=== PATIENT | female | born 1990 | race Caucasian/White ===

== ENCOUNTER → 2018-04-11 | Outpatient (CLI) | payer MEDICAID ==
--- NOTE | 2018-04-11 13:26 | Diagnostic Imaging Report ---
INDICATION: anatomical assessment during normal . TECHNIQUE: Multiple real-time grayscale images were obtained over the gravid uterus. COMPARISON: None. FINDINGS: Single intrauterine currently in a cephalic presentation. Normal amount of amniotic fluid appears to be present. The placenta is anterior and low lying. The placental margins approximately 1-2 cm from the cervix. Cervical length is somewhat difficult to quantify but measures approximately 3.2 cm. Visualized anatomical structures including the kidneys, bladder, stomach, three-vessel cord and its insertion site appearing unremarkable. Intracranial structures, cardiac structures and spine cannot be well visualized owing to positioning. Biometrical measurements are as follows: Biparietal 4.61 cm, age 20 weeks 0 days. Head circumference 18.34 cm, age 20 weeks 5 days. Abdominal circumference 15.13 cm, age 20 weeks 3 days. Femur length 3.38 cm, age 20 weeks 5 days. Sonographic estimate age: 20 weeks 4 days. Sonographic estimated date of delivery: 08/25/2018. Estimated Weight: 356 gm (+/- 52 gm). LMP percentile: 56%. heart rate: 143 beats per minute. number: 1 of 1. IMPRESSION: 1. Single viable intrauterine currently in a cephalic presentation. Sonographic estimated age 20 weeks 4 days for an estimated date of delivery 08/25/2018. 2. No abnormalities demonstrated at this time. However, the intracranial structures, cardiac structures and spine is not well visualized and evaluated owing largely to the positioning. 3. The anteriorly positioned placenta is fairly low-lying, near the level of the cervix. 4. Consideration for followup imaging would be recommended for reassessment of these indeterminate and limited findings. Dictated by: Dictated on workstation # [id number]
== END ==
LOC: RAD 12:01
PROVIDERS: ATTEND Obstetrics & Gynecology
DX: Z36.89 Encounter for other specified antenatal screening (principal); Z3A.20 20 weeks gestation of pregnancy
CPT/HCPCS: 76805

== ENCOUNTER → 2018-05-11 | Outpatient (CLI) | payer MEDICAID ==
--- NOTE | 2018-05-11 12:12 | Diagnostic Imaging Report ---
INDICATION: Followup placenta and cervical length. TECHNIQUE: Multiple real-time grayscale images were obtained over the gravid uterus. COMPARISON: 04/11/2018. FINDINGS: There is a single live fetus in a cephalic presentation. heart rate was recorded at 135 beats per minute. The placenta is anterior. The placenta does not appear to be low lying at this time. Cervix is approximately 2.6 cm in length. Four-chamber heart and spine was better seen today and appear unremarkable. brain is not well seen today due to head position. IMPRESSION: 1. Anterior placenta is no longer low lying and is now located approximately 3.6 cm from the internal cervical os. 2. survey is unremarkable, although head is limited due to position. 3. Cervical length is 2.6 cm. Dictated by: Dictated on workstation # [id number]
== END ==
LOC: RAD 09:59
PROVIDERS: ATTEND Obstetrics & Gynecology
DX: Z36.89 Encounter for other specified antenatal screening (principal); Z3A.00 Weeks of gestation of pregnancy not specified
CPT/HCPCS: 76816

== ENCOUNTER → 2018-07-20 | Outpatient (CLI) | payer MEDICAID ==
--- NOTE | 2018-07-20 20:11 | Diagnostic Imaging Report ---
INDICATION: Right breast lump. FINDINGS: Sonographic interrogation of all four quadrants of the right breast as well as the retroareolar region and right axilla was performed. Area of palpable abnormality corresponds to the retroareolar location of the right breast. There is a circumscribed macrolobulated hypoechoic solid mass at this location measuring 1.9 x 1.3 x 1.9 cm. There is some internal vascularity. This has the appearance of a fibroadenoma. No other masses are seen. IMPRESSION: Findings most consistent with a fibroadenoma in the retroareolar right breast corresponding to the palpable abnormality. Even so, followup right breast ultrasound in six months is recommended to confirm stability. ACR BI-RADS Category 3: Probably benign findings. Dictated by: Dictated on workstation # [id number]
== END ==
LOC: RAD 10:45
PROVIDERS: ATTEND Obstetrics & Gynecology
DX: N63.12 Unspecified lump in the right breast, upper inner quadrant (principal)
CPT/HCPCS: 76641

== ENCOUNTER 2018-07-31 07:06 | Inpatient (IN) | payer MEDICAID ==
[2018-07-31] VITALS (33 sets, daily range): BP systolic 101–190; BP diastolic 55–152
[~2018-07-31] VITALS: Ht 167.6 cm; Wt 98.9 kg
--- NOTE | 2018-07-31 07:12 | NUR ---
CHRIS MONTAGUE presented to unit via amb from home, accompanied by spouse , with c/o contractions and leaking fluid. CHRIS MONTAGUE weighed, gowned, voided, and to bed. 0736 [facility] and TOCO applied, VS taken. CHRIS MONTAGUE oriented to bed controls, call light, TV, heat, and A/C controls.
--- NOTE | 2018-07-31 07:46 | NUR ---
AMNIO SWAB PERFORMED. FOR ROM.
--- NOTE | 2018-07-31 07:54 | NUR ---
SVE BY MAYANK HAQUE. 4.5 CM/90%/-2.
[2018-07-31] MEDS ORDERED: D5 LR IV SOLUTION 1,000 ML IV SCH (08:11)
[2018-07-31] MEDS ORDERED: MINERAL OIL CONCENTRATE 99.9% 15 ML UDC TOP PRN (08:15)
--- NOTE | 2018-07-31 08:15 | NUR ---
DR. MIDDLETON NOTIFIED OF PT'S ARRIVAL AND ROM AND CERVICAL EXAM.
[2018-07-31] MEDS ORDERED: OXYTOCIN/NORMAL SALINE 500 ML IV SCH (08:18)
--- NOTE | 2018-07-31 08:24 | NUR ---
LAB HERE TO DRAW BLOOD.
[2018-07-31] MEDS ORDERED: LIDOCAINE/EPI 1%-1:200,000 (XYLOCAINE) 10 ML VIAL INJ ONE (08:30)
[2018-07-31] MEDS ORDERED: DOXY1TAB6 PO (08:38)
[2018-07-31 08:39] LABS: BASOPHILS % (AUTO) 0 % (0-10); EOSINOPHILS # (AUTO) 0.1 10^3/uL (0.0-0.3); EOSINOPHILS % (AUTO) 1 % (0-10); HEMATOCRIT 34 % (35-52); HEMOGLOBIN 11.4 G/DL (11.5-16.0); LYMPHOCYTES # (AUTO) 1.9 X 10^3 (1.0-4.0); LYMPHOCYTES % (AUTO) 14 % (12-44); MEAN CORPUSCULAR HEMOGLOBIN 28 PG (25-34); MEAN CORPUSCULAR HGB CONC 34 G/DL (32-36); MEAN CORPUSCULAR VOLUME 83 FL (80-99); MEAN PLATELET VOLUME 10.6 FL (7.4-10.4); MONOCYTES # (AUTO) 0.6 X 10^3 (0.0-1.0); MONOCYTES % (AUTO) 4 % (0-12); NEUTROPHILS # (AUTO) 10.7 X 10^3 (1.8-7.8); NEUTROPHILS % (AUTO) 81 % (42-75); PLATELET COUNT 219 10^3/uL (130-400); RED CELL DISTRIBUTION WIDTH 12.8 % (10.0-14.5); WHITE BLOOD COUNT 13.3 10^3/uL (4.3-11.0)
--- NOTE | 2018-07-31 08:39 | NUR ---
SALINE LOCK STARTED IN RIGHT HAND WITH A #18G INTRACATH BY ROLAND HAQUE.
[2018-07-31 08:58] LABS: BILIRUBIN,URINE NEGATIVE (NEGATIVE); CLARITY,URINE CLEAR; COLOR,URINE YELLOW; GLUCOSE, URINE (UA) NEGATIVE (NEGATIVE); KETONES,URINE NEGATIVE (NEGATIVE); LEUKOCYTE ESTERASE ,URINE NEGATIVE (NEGATIVE); NITRITE,URINE NEGATIVE (NEGATIVE); PH,URINE 6 (5-9); PROTEIN,URINE NEGATIVE (NEGATIVE); UROBILINOGEN,URINE NORMAL (NORMAL)
--- NOTE | 2018-07-31 09:04 | History & Physical-OB ---
OB - Chief Complaint & HPI Date/Time Date of Admission: Date of Admission: 07/31/18 Date seen by a Provider: Jul 31, 2018 Time Seen by a Provider: 09:00 Chief Complaint/History OB-Reason for Admission/Chief: Labor Hx : 1 Hx Para: 0 Expected Date of Delivery: Aug 27, 2018 Gestational Age in Weeks: 36 Gestational Age in Days: 1 Admission Nurse Assessment Rev: Yes History of Labs A+/- Rub I VDRL NR HBSAg- Hep C- HIV - GBS - Other Admitted for complaint of SROM. She is acutely ruptured on exam and cervix 4 cm dilated with rare contractions. complicated by right breast fibroadenoma. Allergies and Home Medications Allergies Coded Allergies: No Known Drug Allergies (Unverified , 07/31/18) Home Medications Doxylamine Succinate/Vit B6 1 Each Tab.ir, 1 TAB PO DAILY, (Reported) Patient Home Medication List Home Medication List Reviewed: Yes OB - History Hx of Present Ultrasounds: Normal mid trimester US Obstetrical Complications: None Medical Complications: Other (breast fibroadenoma) Obstetrical History Hx : 1 Hx Para: 0 Patient Past Medical History NC Social History/Family History HIV/AIDS: No Recent Infectious Disease Expo: No Sexually Transmitted Disease: No Alcohol Use: Denies Use Recreational Drug Use: No Smoking Cessation: Never smoker Immunizations Hepatitis A: No Hepatitis B: No Tetanus Booster (TDap): Less than 5yrs (06/14/17) Date of Influenza Vaccine: Jan 01, 2018 Rubella: immune RPR/VDRL: Negative GBS Status: Negative HBsAG: Negative OB - Admission Exam Physical Exam Vitals: see Rn notes Heart: Rhythm Normal Lungs: Clear Abdomen: Gravid Extremities: Normal Reflexes: Normal Cervical Dilatation: 4cm Effacement: 75% Station: -2 Membranes: Ruptured Amniotic Fluid: Clear Accelerations: Accelerations Present Decelerations: No Decelerations Short Term Variability: Present Concrete Hopper Operator Variability: Average (6-25) Contractions on Admission: 6-10 Minutes Apart Labs Laboratory Tests Test 07/31/18 08:00 07/31/18 08:30 Range/Units White Blood Count 13.3 H 4.3-11.0 10^3/uL Red Blood Count 4.11 L 4.35-5.85 10^6/uL Hemoglobin 11.4 L 11.5-16.0 G/DL Hematocrit 34 L 35-52 % Mean Corpuscular Volume 83 80-99 FL Mean Corpuscular Hemoglobin 28 25-34 PG Mean Corpuscular Hemoglobin Concent 34 32-36 G/DL Red Cell Distribution Width 12.8 10.0-14.5 % Platelet Count 219 130-400 10^3/uL Mean Platelet Volume 10.6 H 7.4-10.4 FL Neutrophils (%) (Auto) 81 H 42-75 % Lymphocytes (%) (Auto) 14 12-44 % Monocytes (%) (Auto) 4 0-12 % Eosinophils (%) (Auto) 1 0-10 % Basophils (%) (Auto) 0 0-10 % Neutrophils # (Auto) 10.7 H 1.8-7.8 X 10^3 Lymphocytes # (Auto) 1.9 1.0-4.0 X 10^3 Monocytes # (Auto) 0.6 0.0-1.0 X 10^3 Eosinophils # (Auto) 0.1 0.0-0.3 10^3/uL Basophils # (Auto) 0.0 0.0-0.1 10^3/uL OB - Assessment/Plan/Diagnosis Assessment Assessment: IUP - , labor, rupture of membranes Admission Dx 1. premature rupture of membranes 2. GBS - 36 1/7 week gestation 4. fibroadenoma of the right breast Admission Status: Inpatient Order (span 2 midnights) (labor) Reason for Inpatient Admission: labor Plan Plan: Expectant Management Other Plan Admit for premature rupture of membranes. Anticipate Epidural and augmentation as needed. GBS - Peds - no local ([facility]) CHASE MIDDLETON DO Jul 31, 2018 09:04
[2018-07-31 09:05] LABS: BACTERIA,URINE FEW /HPF; RBC,URINE 0-2 /HPF; WBC,URINE 0-2 /HPF
--- NOTE | 2018-07-31 09:20 | NUR ---
PT TRANSFERRED VIA W/C TO LABOR ROOM 316. ORIENTED TO SURROUNDINGS. UP TO THE BATHROOM. VOID.
--- NOTE | 2018-07-31 09:30 | NUR ---
Report received from Nicho Talavera RN
--- NOTE | 2018-07-31 09:40 | NUR ---
1000 CC LR STARTED IV TRA W/O RATE FOR EPIDURAL PROCEDURE.
[2018-07-31] MEDS ORDERED: SUFENTA 0.6MCG/ML BUPIVA 0.125 100 ML ONE (10:09)
[2018-07-31] MEDS: BETAMETHASONE ACE/NA PHOS 6 MG/ML (CELESTONE SOLUSPAN) IM SCH ×2 (10:20→21:00)
[2018-07-31] MEDS ORDERED: fentaNYL INJECTION 100 MCG/2 ML AMP ONE (10:22)
[2018-07-31] MEDS ORDERED: BUPIVACAINE 0.25% 30 ML (SENSORCAINE) VIAL ONE (10:22)
--- OUTSIDE RECORDS SUMMARY | 2018-07-31 10:24 | XMS REPORT ---
Author Author CAN REAVES Organization [facility] Address [address] [place] [address] Care Team Providers Care Mathematician Name Role Phone CAN REAVES Unavailable PROBLEMS Type Condition ICD9-CM Code FGI76-HX Code Onset Dates Condition Status SNOMED Code Problem Acute seasonal allergic rhinitis, unspecified trigger J30.2 Active 757648776 ALLERGIES No Information ENCOUNTERS Encounter Location Date Diagnosis [facility] [address] [place] [phone] Jan, Acute seasonal allergic rhinitis, unspecified trigger J30.2 and Fever, unspecified fever cause R50.9 [facility] [address] [place] [phone] Nov, Encounter for immunization Z23 [facility] [address] [id number] Oct, Encounter for dental examination Z01.20 IMMUNIZATIONS Vaccine Route Administration Date Status FLUARIX QUAD (3 AND UP) 2016 IM Intramuscular Dec 19, 2016 Administered SOCIAL HISTORY Never Assessed REASON FOR VISIT Flu shot-AHarrymanRN PLAN OF CARE VITAL SIGNS MEDICATIONS No Known Medications RESULTS No Results PROCEDURES Procedure Date Ordered Result Body Site FLUARIX QUAD (3 AND UP) 2017 Dec 19, 2016 SINGLE IMMUNIZATION ADMIN Dec 19, 2016 INSTRUCTIONS MEDICATIONS ADMINISTERED No Known Medications MEDICAL (GENERAL) HISTORY Type Description Date Medical History History of pneumonia 2011 Surgical History [place] teeth 2006
--- OUTSIDE RECORDS SUMMARY | 2018-07-31 10:24 | XMS REPORT ---
Author Author NUPUR MORALES Organization [facility] Address [address] [place] [address] Care Team Providers Care Sailor Name Role Phone NUPUR MORALES Unavailable PROBLEMS Type Condition ICD9-CM Code [id number] Code Onset Dates Condition Status SNOMED Code Problem Acute seasonal allergic rhinitis, unspecified trigger J30.2 Active [id number] ALLERGIES No Known Allergies ENCOUNTERS Encounter Location Date Diagnosis [facility] [address] [place] [phone] Jan, Acute seasonal allergic rhinitis, unspecified trigger J30.2 and Fever, unspecified fever cause R50.9 [facility] [address] [place] [phone] Nov, Encounter for immunization Z23 [facility] [id number] [place] [id number] Oct, Encounter for dental examination Z01.20 IMMUNIZATIONS No Known Immunizations SOCIAL HISTORY Never Assessed REASON FOR VISIT vishal parson PLAN OF CARE Activity Details Follow Up First Available Reason:Restorative VITAL SIGNS Heart Rate 67 bpm 2016-11-17 Blood pressure systolic 112 mmHg 2016-11-17 Blood pressure diastolic 76 mmHg 2016-11-17 MEDICATIONS No Known Medications RESULTS No Results PROCEDURES Procedure Date Ordered Result Body Site COMP ORAL EVALUATION - NEW/EST PT Nov 17, 2016 INTRAORL-PERIAPICAL 1 FILM [id number] Nov 17, 2016 TOPICAL FLUORIDE VARNISH Nov 17, 2016 INTRAORL-PERIAPICAL EA ADD FILM Nov 17, 2016 INTRAORL-PERIAPICAL EA ADD FILM Nov 17, 2016 PROPHYLAXIS - ADULT Nov 17, 2016 BITEWINGS - FOUR FILMS Nov 17, 2016 INSTRUCTIONS MEDICATIONS ADMINISTERED No Known Medications MEDICAL (GENERAL) HISTORY Type Description Date Medical History History of pneumonia 2011 Surgical History [place] teeth 2006
--- OUTSIDE RECORDS SUMMARY | 2018-07-31 10:24 | XMS REPORT ---
Author Author ZULLY GRIMES Organization [facility] Address [address] [place] [address] Care Team Providers Care Mailroom Courier Name Role Phone GRIMES ZULLY Unavailable PROBLEMS Type Condition ICD9-CM Code UQV05-LY Code Onset Dates Condition Status SNOMED Code Problem Acute seasonal allergic rhinitis, unspecified trigger J30.2 Active [id number] ALLERGIES No Known Allergies ENCOUNTERS Encounter Location Date Diagnosis [facility] [id number] [address] Jan, Acute seasonal allergic rhinitis, unspecified trigger J30.2 and Fever, unspecified fever cause R50.9 [facility] [address] [address] Nov, Encounter for immunization Z23 [facility] [address] [place] [phone] Oct, Encounter for dental examination Z01.20 IMMUNIZATIONS Vaccine Route Administration Date Status DEXAMETHASONE 4MG/ML (PER 1 MG) IM Intramuscular Jan 31, 2017 Administered DEPO MEDROL 80 MG/ML IM Intramuscular Jan 31, 2017 Administered SOCIAL HISTORY Never Assessed REASON FOR VISIT congestion, facial pain started Sun JStrasserRN PLAN OF CARE Activity Details Follow Up prn Reason: VITAL SIGNS Weight 154.2 lbs 2017-01-31 Temperature 98.4 degrees Fahrenheit 2017-01-31 Heart Rate 86 bpm 2017-01-31 Respiratory Rate 20 2017-01-31 Blood pressure systolic 106 mmHg 2017-01-31 Blood pressure diastolic 66 mmHg 2017-01-31 MEDICATIONS No Known Medications RESULTS Name Result Date Reference Range INFLUENZA A & B (IN HOUSE) 2017-01-31 INFLUENZA A negative INFLUENZA B negative Control + Lot # [id number] Exp date 2017-10-20 PROCEDURES Procedure Date Ordered Result Body Site DEPO MEDROL 80 MG/ML Jan 31, 2017 DEXAMETHASONE 4MG/ML (PER 1 MG) Jan 31, 2017 THER/PROPH/DIAG INJ, SC/IM Jan 31, 2017 INFLUENZA ASSAY W/OPTIC Jan 31, 2017 INSTRUCTIONS MEDICATIONS ADMINISTERED No Known Medications MEDICAL (GENERAL) HISTORY Type Description Date Medical History History of pneumonia 2011 Surgical History [place] teeth 2006
[2018-07-31] MEDS ORDERED: LACTATED RINGERS 1,000 ML IV ONE (11:06)
[2018-07-31] MEDS ORDERED: CATHETER FLUSH 10 ML SYR IV PRN (11:15)
[2018-07-31] MEDS ORDERED: NALOXONE 0.4 MG/ML 1 ML (NARCAN) VIAL IV PRN (11:15)
[2018-07-31] MEDS ORDERED: ONDANSETRON 4 MG/2 ML (SDV) Z0FRAN IV PRN (11:15)
[2018-07-31] MEDS ORDERED: EPIDURAL (SUFENTA 0.6MCG/ML BUPIVA 0.125%) 100 ML BAG EPI SCH ×2 (11:15→12:30)
[2018-07-31] MEDS ORDERED: diphenhydrAMINE 50 MG/ML INJ (BENADRYL) IV PRN (11:15)
[2018-07-31] MEDS ORDERED: CATHETER FLUSH 10 ML SYR IV SCH (14:00)
--- NOTE | 2018-07-31 14:50 | NUR ---
spontaneous vaginal delivery of placenta with cord attached. fundal massage per dr ware, noted firm with minimal bleeding. 1451 Pitocin infusing per pump at 999ml/hr as ordered by dr ware. plan of care reviewed with pt per dr ware. 1455 ffu/1 with lt-mod rubra noted, no clots expressed, vital signs stable 1510 ffu/2 with lt rubra noted, vital signs stable. skin to skin with mother 1525 ffu/2 with lt rubra noted, no clots expressed. pt denies needs 1540 vital signs stable. ffu/1 with mod rubra noted, no clots expressed. 1555 vital signs stable. ffu/1 with mod rubra noted. plan of care reviewed with pt. pt able to move both lower extremeties for transport to room.
[2018-07-31] MEDS: OXYTOCIN/NORMAL SALINE 500 ML IV SCH ×2 (14:51→16:20)
[2018-07-31] MEDS ORDERED: MEASLES,MUMPS,RUBELLA 1 EA INJ SQ ONE (15:00)
[2018-07-31] MEDS ORDERED: TETANUS,DIPTH,PERTUSS P/F (BOOSTRIX) 0.5 ML VIAL IM ONE (15:00)
[2018-07-31] MEDS ORDERED: WITCH HAZEL(TUCKS) 40 EA JAR TOP PRN (15:00)
[2018-07-31] MEDS ORDERED: BENZOCAINE/MENTHOL (DERMOPLAST) 56 ML CAN TP PRN (15:00)
--- NOTE | 2018-07-31 15:00 | NUR ---
epidural catheter dc'd with tip intact
--- NOTE | 2018-07-31 15:06 | OB Labor & Delivery Record ---
Vag Delivery Note Vag Delivery Note Date of Delivery: 07/31/18 Preoperative Diagnosis: Moose Harding is a 27 /Para 1 / 0,Gestational Age 36 week gestation, premature rupture of membranes Postoperative Diagnosis: Same Surgeon: CHASE MIDDLETON Anesthesia: epidural Delivery Type: vaginal Findings: Viable male , apgars 8/9 , weight ^#5oz Lacerations: none Intact placenta with 3 vessel cord. Nuchal cord x 1 delivered through, no body cord or shoulder dystocia Estimated Blood Loss: 150 ml Complications: None Condition: Stable Description of Procedure: The patient is a 27 year old female who presented at 36 1/7 weeks with premature, rupture of membranes. She was admitted and informed consent was obtained. Her labor course was remarkable for pitocin augmentation. She progressed to complete dilatation and began to push. She was then set up for delivery. The infant's head was delivered atraumatically in the Ella position. The shoulders and remainder of the infant's body were then delivered without difficulty. Upon delivery, the head was held below the level of the perineum and the mouth and nares were bulb suctioned. The cord was doubly clamped and cut and the infant was handed off to the pediatric staff. An intact placenta with 3-vessel cord delivered via Juanito and there was found to be minimal bleeding.~ Vigorous fundal massage was performed and the fundus was found to be firm. IV oxytocin was given. Examination of the vagina and perineum revealed no laceration. Following the delivery, sponge, instrument and needle counts were correct. Mom and baby were both in stable condition in the labor suite. Vitals - Labs Vital Signs - I&O Vital Signs Date Time Temp Pulse Resp B/P (MAP) Pulse Ox O2 Delivery O2 Flow Rate FiO2 07/31/18 12:45 100 18 120/67 (84) 98 Room Air 07/31/18 12:30 90 18 113/63 (80) 98 Room Air 07/31/18 12:15 96 18 107/61 (76) 98 Room Air 07/31/18 12:00 89 18 107/57 (74) 100 Room Air 07/31/18 11:45 87 18 119/62 (81) 100 Room Air 07/31/18 11:30 99 18 115/60 (78) 100 Room Air 07/31/18 11:25 85 117/62 (80) 100 Room Air 07/31/18 11:23 99 190/152 (165) 99 Room Air 07/31/18 11:20 104 142/108 (119) 99 Room Air 07/31/18 11:15 77 18 111/60 (77) 97 Room Air 07/31/18 11:10 92 18 101/57 (72) 98 Room Air 07/31/18 11:08 95 18 112/60 (77) 97 Room Air 07/31/18 11:05 91 18 114/64 (81) 97 Room Air 07/31/18 11:00 95 18 109/61 (77) 98 Room Air 07/31/18 10:58 90 18 116/65 (82) 99 Room Air 07/31/18 10:55 88 18 115/55 (75) 99 Room Air 07/31/18 10:53 85 18 125/58 (80) Room Air 07/31/18 10:50 96.4 100 18 117/59 (78) 99 Room Air 07/31/18 10:45 96 18 130/73 (92) 98 Room Air 07/31/18 10:40 107 18 99 Room Air 07/31/18 10:35 90 18 135/70 (91) 98 Room Air 07/31/18 10:30 07/31/18 10:20 85 18 120/65 (83) Room Air 07/31/18 10:00 102 18 144/80 (101) Room Air 07/31/18 09:50 77 18 124/67 (86) Room Air 07/31/18 09:35 84 18 133/69 (90) Room Air Labs Laboratory Tests 07/31/18 08:00: Urine Color YELLOW, Urine Clarity CLEAR, Urine pH 6, Urine Specific [place] 1.015L, Urine Protein NEGATIVE, Urine Glucose (UA) NEGATIVE, Urine Ketones NEGATIVE, Urine Nitrite NEGATIVE, Urine Bilirubin NEGATIVE, Urine Urobilinogen NORMAL, Urine Leukocyte Esterase NEGATIVE, Urine RBC (Auto) 2+H, Urine RBC 0-2, Urine WBC 0-2, Urine Squamous Epithelial Cells 2-5, Urine Crystals NONE, Urine Bacteria FEWH, Urine Casts NONE, Urine Mucus SMALLH, Urine Culture Indicated CUL TURE PENDING 07/31/18 08:30: White Blood Count 13.3H, Red Blood Count 4.11L, Hemoglobin 11.4L, Hematocrit 34L , Mean Corpuscular Volume 83, Mean Corpuscular Hemoglobin 28, Mean Corpuscular Hemoglobin Concent 34, Red Cell Distribution Width 12.8, Platelet Count 219, Mean Platelet Volume 10.6H, Neutrophils (%) (Auto) 81H, Lymphocytes (%) (Auto) 14, Monocytes (%) (Auto) 4, Eosinophils (%) (Auto) 1, Basophils (%) (Auto) 0, Neutrophils # (Auto) 10.7H, Lymphocytes # (Auto) 1.9, Monocytes # (Auto) 0.6, Eosinophils # (Auto) 0.1, Basophils # (Auto) 0.0 CHASE MIDDLETON DO Jul 31, 2018 15:05
--- NOTE | 2018-07-31 16:00 | NUR ---
Pericare, pad changed, underwear on, gown changed. plan of care reviewed with pt and family. Pt assisted to wheelchair and transferred to room 312. Oriented to room, call light and bed. in room with mother.
--- NOTE | 2018-07-31 17:30 | NUR ---
Assisted up to void. +void, pericare and pad changed. back to bed. pt ambulates well. fresh ice water to bedside.
[2018-07-31] MEDS: ACETAMINOPHEN 500 MG TAB (TYLENOL) PO SCH (21:09)
[2018-07-31] MEDS: DOCUSATE SODIUM 100 MG (COLACE) CAP PO SCH (21:10)
[2018-07-31] MEDS: CATHETER FLUSH 10 ML SYR IV SCH (21:10)
[2018-08-01] VITALS: BP 106/57
[2018-08-01] MEDS: IBUPROFEN 600 MG (MOTRIN) TAB PO SCH ×5 (00:05→19:59)
[2018-08-01 04:00] VITALS: BP 103/58
[2018-08-01] MEDS: ACETAMINOPHEN 500 MG TAB (TYLENOL) PO SCH ×3 (05:15→19:59)
[2018-08-01 06:51] LABS: BASOPHILS % (AUTO) 0 % (0-10); EOSINOPHILS % (AUTO) 0 % (0-10); HEMATOCRIT 31 % (35-52); HEMOGLOBIN 10.4 G/DL (11.5-16.0); LYMPHOCYTES # (AUTO) 2.3 X 10^3 (1.0-4.0); LYMPHOCYTES % (AUTO) 10 % (12-44); MEAN CORPUSCULAR HEMOGLOBIN 28 PG (25-34); MEAN CORPUSCULAR HGB CONC 34 G/DL (32-36); MEAN CORPUSCULAR VOLUME 83 FL (80-99); MEAN PLATELET VOLUME 10.6 FL (7.4-10.4); MONOCYTES # (AUTO) 1.4 X 10^3 (0.0-1.0); MONOCYTES % (AUTO) 6 % (0-12); NEUTROPHILS # (AUTO) 20.3 X 10^3 (1.8-7.8); NEUTROPHILS % (AUTO) 85 % (42-75); PLATELET COUNT 235 10^3/uL (130-400); WHITE BLOOD COUNT 23.9 10^3/uL (4.3-11.0)
[2018-08-01] MEDS: CATHETER FLUSH 10 ML SYR IV SCH (06:55)
--- NOTE | 2018-08-01 07:59 | Anesthesia-Regional Post-Op ---
Regional Patient Condition Mental Status: Alert, Oriented x3 Circulation: Same as Pre-Op Headache: Absent Sensation: Full Recovery Motor Block: Absent Post Op Complications Complications None Follow Up Care/Instructions Patient Instructions None needed. Anesthesia/Patient Condition Patient is doing well, no complaints, stable vital signs, no apparent adverse anesthesia problems. No complications reported per nursing. VESTA TAYLOR CRNA Aug 01, 2018 07:59
--- NOTE | 2018-08-01 08:06 | Postpartum Progress Note ---
Note Note Day # 1 Subjective: Patient is without complaints. Ambulating, voiding. Tolerating a regular diet without nausea or vomiting. Normal lochia. Pain is well controlled with oral pain medications. Objective: Physical Exam: General - Alert and oriented, no apparent distress Abdomen - Soft, appropriately tender to palpation, non-distended, fundus firm at umbilicus Extremities - no edema, negative Consuelo's bilaterally Assessment: PPD 1 NVD Acute blood loss anemia Plan: Routine care. Encourage breast feeding. Encourage ambulation. Ferrous sulfate supplementation. Plan for discharge Vitals - Labs Vital Signs - I&O Vital Signs Date Time Temp Pulse Resp B/P (MAP) Pulse Ox O2 Delivery O2 Flow Rate FiO2 08/01/18 04:00 98.6 64 18 103/58 (73) 96 Room Air 08/01/18 00:00 98.9 74 16 106/57 (73) 96 Room Air 07/31/18 21:00 96 Room Air 07/31/18 20:00 99.2 85 18 118/66 (83) 96 Room Air 07/31/18 14:46 125 18 118/60 (79) Room Air 07/31/18 14:30 88 18 127/60 (82) Room Air 07/31/18 14:15 100 18 135/69 (91) Room Air 07/31/18 14:00 96 18 153/110 (124) Room Air 07/31/18 13:45 102 18 117/82 (94) Room Air 07/31/18 13:30 116 18 115/57 (76) 100 Room Air 07/31/18 13:15 86 18 116/56 (76) 100 Room Air 07/31/18 13:00 93 18 121/62 (81) 99 Room Air 07/31/18 12:45 100 18 120/67 (84) 98 Room Air 07/31/18 12:30 90 18 113/63 (80) 98 Room Air 07/31/18 12:15 96 18 107/61 (76) 98 Room Air 07/31/18 12:00 89 18 107/57 (74) 100 Room Air 07/31/18 11:45 87 18 119/62 (81) 100 Room Air 07/31/18 11:30 99 18 115/60 (78) 100 Room Air 07/31/18 11:25 85 117/62 (80) 100 Room Air 07/31/18 11:23 99 190/152 (165) 99 Room Air 07/31/18 11:20 104 142/108 (119) 99 Room Air 07/31/18 11:15 77 18 111/60 (77) 97 Room Air 07/31/18 11:10 92 18 101/57 (72) 98 Room Air 07/31/18 11:08 95 18 112/60 (77) 97 Room Air 07/31/18 11:05 91 18 114/64 (81) 97 Room Air 07/31/18 11:00 95 18 109/61 (77) 98 Room Air 07/31/18 10:58 90 18 116/65 (82) 99 Room Air 07/31/18 10:55 88 18 115/55 (75) 99 Room Air 07/31/18 10:53 85 18 125/58 (80) Room Air 07/31/18 10:50 96.4 100 18 117/59 (78) 99 Room Air 07/31/18 10:45 96 18 130/73 (92) 98 Room Air 07/31/18 10:40 107 18 99 Room Air 07/31/18 10:35 90 18 135/70 (91) 98 Room Air 07/31/18 10:30 07/31/18 10:20 85 18 120/65 (83) Room Air 07/31/18 10:00 102 18 144/80 (101) Room Air 07/31/18 09:50 77 18 124/67 (86) Room Air 07/31/18 09:35 84 18 133/69 (90) Room Air I & O 08/01/18 07:00 Intake Total 1000 ml Balance 1000 ml Labs Laboratory Tests 07/31/18 08:30: White Blood Count 13.3H, Red Blood Count 4.11L, Hemoglobin 11.4L, Hematocrit 34L , Mean Corpuscular Volume 83, Mean Corpuscular Hemoglobin 28, Mean Corpuscular Hemoglobin Concent 34, Red Cell Distribution Width 12.8, Platelet Count 219, Mean Platelet Volume 10.6H, Neutrophils (%) (Auto) 81H, Lymphocytes (%) (Auto) 14, Monocytes (%) (Auto) 4, Eosinophils (%) (Auto) 1, Basophils (%) (Auto) 0, Neutrophils # (Auto) 10.7H, Lymphocytes # (Auto) 1.9, Monocytes # (Auto) 0.6, Eosinophils # (Auto) 0.1, Basophils # (Auto) 0.0 08/01/18 06:40: White Blood Count 23.9H, Red Blood Count 3.73L, Hemoglobin 10.4L, Hematocrit 31L , Mean Corpuscular Volume 83, Mean Corpuscular Hemoglobin 28, Mean Corpuscular Hemoglobin Concent 34, Red Cell Distribution Width 13.0, Platelet Count 235, Mean Platelet Volume 10.6H, Neutrophils (%) (Auto) 85H, Lymphocytes (%) (Auto) 10L, Monocytes (%) (Auto) 6, Eosinophils (%) (Auto) 0, Basophils (%) (Auto) 0, Neutrophils # (Auto) 20.3H, Lymphocytes # (Auto) 2.3, Monocytes # (Auto) 1.4H, Eosinophils # (Auto) 0.0, Basophils # (Auto) 0.0 MARLENY BAUMANN DO Aug 01, 2018 08:06
[2018-08-01 10:35] VITALS: BP 118/69
[2018-08-01] MEDS: PRENATAL VITAMIN 1 EA TAB PO SCH (10:46)
[2018-08-01] MEDS: FERROUS SULF 325 MG (IRON) TAB PO SCH (10:47)
[2018-08-01] MEDS: DOCUSATE SODIUM 100 MG (COLACE) CAP PO SCH ×2 (10:47→19:59)
--- NOTE | 2018-08-01 14:00 | NUR ---
Assisted mother with latch of infant.
[2018-08-01 16:35] VITALS: BP 108/66
[2018-08-01 20:00] VITALS: BP 114/63
[2018-08-02 02:42] VITALS: BP 109/55
[2018-08-02] MEDS: IBUPROFEN 600 MG (MOTRIN) TAB PO SCH ×3 (02:42→16:16)
[2018-08-02] MEDS: ACETAMINOPHEN 500 MG TAB (TYLENOL) PO SCH (06:07)
--- NOTE | 2018-08-02 07:30 | Postpartum Progress Note ---
Note Note Day # 2 Subjective: Patient is without complaints. Ambulating, voiding. Tolerating a regular diet without nausea or vomiting. Normal lochia. Pain is well controlled with oral pain medications. Objective: Physical Exam: General - Alert and oriented, no apparent distress Abdomen - Soft, appropriately tender to palpation, non-distended, fundus firm at umbilicus Extremities - no edema, negative Consuelo's bilaterally Assessment: PPD 2 NVD Plan: Routine care. Encourage breast feeding. Encourage ambulation. Ferrous sulfate supplementation. Plan for discharge today Vitals - Labs Vital Signs - I&O Vital Signs Date Time Temp Pulse Resp B/P (MAP) Pulse Ox O2 Delivery O2 Flow Rate FiO2 08/02/18 02:42 97.8 69 18 109/55 (73) 97 Room Air 08/01/18 20:00 98.3 69 18 114/63 (80) 97 Room Air 08/01/18 16:35 98.6 78 18 108/66 (80) 97 Room Air 08/01/18 10:35 98.1 72 18 118/69 (85) 98 Room Air Labs Microbiology 07/31/18 Urine Culture - Final, Complete 3 or more isolates MARLENY BAUMANN DO Aug 02, 2018 07:30
--- NOTE | 2018-08-02 07:31 | Discharge Inst-Women's Service ---
Discharge Inst-Women's Serv Depart Medication/Instructions New, Converted or Re-Newed RX: RX on Chart Consults/Follow Up Additional Follow Up: Yes Orders/Referrals Dr. Choi in 6 weeks Activity Activity: Activity as Tolerated Driving Instructions: No Driving for 1 Week NO SMOKING: NO SMOKING Nothing Inside Vagina: No Douching, No [place], No Tampons Diet Discharge Diet: No Restrictions Symptoms to Report to : Bleeding Excessive, Pain Increased, Fever Over 101 Degrees F, Vaginal Bleeding Increase, Questions/Concerns For Any Problems or Questions: Contact Your Physician MARLENY BAUMANN DO Aug 02, 2018 07:30
[2018-08-02] MEDS ORDERED: IBUP-844 PO (07:32)
[2018-08-02] MEDS ORDERED: Benzocaine/Menthol TP (07:32)
[2018-08-02] MEDS ORDERED: DOCU100C37 PO (07:32)
[2018-08-02] MEDS ORDERED: FERR325T18 PO (07:32)
[2018-08-02] MEDS: FERROUS SULF 325 MG (IRON) TAB PO SCH (08:52)
[2018-08-02] MEDS: PRENATAL VITAMIN 1 EA TAB PO SCH (08:52)
[2018-08-02] MEDS: DOCUSATE SODIUM 100 MG (COLACE) CAP PO SCH (08:52)
[2018-08-02 08:54] VITALS: BP 109/70
--- NOTE | 2018-08-02 09:00 | NUR ---
PT IN BED, S/O AND INFANT AT THE BEDSIDE. MEDS GIVEN PO; SEE EMAR FOR FURTHER. VS OBTAINED. INITIAL SHIFT ASSESSMENT COMPLETED; SEE INTERVENTION FOR FURTHER. Addendum: 08/02/18 at 1717 by CELINA ROSAS RN PT VOICES THAT SHE RECEIVED HER TDAP VACCINE IN THE CLINIC.
--- NOTE | 2018-08-02 13:10 | NUR ---
DISCHARGE PAPERS PROVIDED AND REVIEWED WITH PT, PT VERBALIZES UNDERSTANDING AND DENIES ANY QUESTIONS AT THIS TIME. PAPER SIGNED.
--- NOTE | 2018-08-02 13:18 | NUR ---
RX'S CALLED INTO [facility] AT THIS TIME.
[2018-08-02 16:15] VITALS: BP 117/70
--- NOTE | 2018-08-02 16:16 | NUR ---
PT IN BED, RESTING. VS OBTAINED. ROUTINE MOTRIN GIVEN; SEE EMAR FOR FURTHER. PT READY FOR DISCHARGE TO [facility].
--- NOTE | 2018-08-02 16:20 | NUR ---
PT DISCHARGED FROM -312 TO [facility] TO REMAIN IN THE HOSPITAL WITH INFANT. PT IN STABLE CONDITION. S/O AND AT THE BEDSIDE. NO NEEDS VOICED.
--- NOTE | 2018-08-06 16:12 | Physician Query-Final Dx ---
JEFFERY HOFFMANN 08/06/18 1612: Final Diagnosis Give Final Diagnosis Please give Final Diagnosis MARLENY BAUMANN DO 08/07/18 1242: Final Diagnosis Give Final Diagnosis PPD 2 NVD JEFFERY HOFFMANN Aug 06, 2018 16:12 MARLENY BAUMANN DO Aug 07, 2018 12:42
== END 2018-08-02 16:20 | disposition home or self-care (01) | DRG 806 ==
LOC: WSo 07:06 → LDRP 07:06 → WSo 10:16 → LDRP 16:19
PROVIDERS: ADMIT Obstetrics & Gynecology; ATTEND Obstetrics & Gynecology
PROC: 10E0XZZ Delivery of Products of Conception, External Approach (ICD-10-PCS; principal; 2018-07-31)
DX: O42.913 Preterm premature rupture of membranes, unspecified as to length of time between rupture and onset of labor, third trimester (principal); O69.81X0 Labor and delivery complicated by cord around neck, without compression, not applicable or unspecified; O90.81 Anemia of the puerperium; D62 Acute posthemorrhagic anemia; O26.893 Other specified pregnancy related conditions, third trimester; D24.1 Benign neoplasm of right breast; Z3A.36 36 weeks gestation of pregnancy; Z37.0 Single live birth
CPT/HCPCS: 36415; 81000; 85025; 86850; 86900; 86901; 87088; 99212